=== PATIENT | male | born 1990 | race African-American/Black ===

== ENCOUNTER 2016-05-09 20:35 | Emergency (ER) | payer OTHER ==
[~2016-05-09] VITALS: Ht 172.7 cm; Wt 143.9 kg
[~2016-05-09 20:35] MED LIST: CEFDINIR300 MG PO; MOTRIN800 MG PO; PREDNISONE10 MG PO
[2016-05-09 23:04] VITALS: BP 141/83
== END 2016-05-09 23:05 | disposition home or self-care (01) ==
LOC: EME 20:35 → RME 20:35
DX: J06.9 Acute upper respiratory infection, unspecified (principal)
CPT/HCPCS: 87651 90; 99281; 99283